=== PATIENT | male | born 1955 | race Caucasian/White ===

== ENCOUNTER 2017-12-11 08:51 | Outpatient (CLI) | payer OTHER ==
[2017-12-11 10:12] LABS: #Basophils 0.1 thou/uL (0.0-0.2); #Eosinphils 0.2 thou/uL (0.0-0.7); #Lymphocytes 2.3 thou/uL (1.20-3.40); #Monocytes 0.7 thou/uL (0.11-0.59); #Neutrophils 5.5 thou/uL (1.40-6.50); %Eosinophils 2.8 % (0.0-10.0); %Lymphocytes 26.1 % (21.0-51.0); %Monocytes 8.1 % (0.0-10.0); %Neutrophils 62.1 % (42.0-75.0); Mean Corpuscular HGB CONC 33.7 g/dL (32.0-36.0); Mean Corpuscular Hemoglobin 29.8 pg (27.0-31.0); Mean Corpuscular Volume 88.4 fL (78.0-98.0); Mean Platelet Volume 7.6 fL (7.4-10.4); Platelet Count 239 thou/uL (130-400); RBC Distribution Width 12.3 % (11.5-14.5); Red Blood Cell (RBC) Count 5.36 mill/uL (4.70-6.10); White Blood Cell (WBC) Count 8.8 thou/uL (4.8-10.8)
== END 2017-12-11 08:52 | disposition home or self-care (01) ==
LOC: LABBT 08:51
PROVIDERS: ATTEND Orthopaedic Surgery Hand Surgery
DX: Z01.812 Encounter for preprocedural laboratory examination (principal); S61.319A Laceration without foreign body of unspecified finger with damage to nail, initial encounter; S67.02XA Crushing injury of left thumb, initial encounter; S69.92XA Unspecified injury of left wrist, hand and finger(s), initial encounter
CPT/HCPCS: 85025

== ENCOUNTER 2017-12-15 12:29 | Day surgery (SDC) | payer OTHER ==
[2017-12-11 09:15] VITALS: BMI 30.1
[2017-12-15] MEDS ORDERED: Dexamethasone 20 MG/5 ML VIAL ONE (13:03)
[2017-12-15] MEDS ORDERED: PROPOFOL 200 MG/20 ML VIAL ONE (13:03)
[2017-12-15] MEDS ORDERED: Ondansetron HCl/PF 4 MG/2 ML Vial ONE (13:03)
[2017-12-15] MEDS ORDERED: ePHEDrine/0.9% NaCl/PF SYRINGE 50 mg/10 ml ONE (13:03)
[2017-12-15] MEDS ORDERED: Lidocaine 1% PF 5 ML VIAL ONE (13:03)
[2017-12-15] MEDS ORDERED: Levofloxacin 500 mg/D5W 100 ml Premix Bag ONE (13:28)
[2017-12-15] MEDS ORDERED: Clindamycin/D5W 600 mg/50 ml Premix Bag ONE (13:28)
[2017-12-15] MEDS ORDERED: Midazolam HCl 2 mg/2 ml Vial ONE (16:50)
[2017-12-15] MEDS ORDERED: Fentanyl 100 MCG/2 ML VIAL ONE (16:50)
[2017-12-15] MEDS ORDERED: Bupivacaine PF 0.5% 30 ML VIAL ONE (16:52)
[2017-12-15] MEDS ORDERED: Bacitracin Zinc Ointment 30 gm TUBE ONE (16:52)
[2017-12-15] MEDS ORDERED: Sodium Chloride 0.9% 10 ML ONE (16:52)
[2017-12-15] MEDS ORDERED: Ketorolac Tromethamine 30 MG/ML VIAL ONE ×2 (18:52)
--- NOTE | 2017-12-15 19:13 | RAD ---
SEVEN FLUOROSCOPIC SPOT IMAGES FROM ORIF OF LEFT THUMB 12/15/17 INDICATION: ORIF left thumb. Fluoroscopic time: 65.9 seconds. Total exposure: 1.57 mGy. FINDINGS: Some of these images demonstrate a comminuted fracture involving the thumb distal phalanx. Subsequent images demonstrate reduction and percutaneous pinning of the comminuted fracture. Fracture line was near anatomic. The pins project in the expected position. IMPRESSION: ORIF left thumb. POS: BH
--- NOTE | 2017-12-16 09:07 | OP ---
DATE OF SURGERY: 12/15/2017 PREOPERATIVE DIAGNOSES: 1. Left open fracture, thumb distal phalanx. 2. Nail bed laceration, distal phalanx. 3. Wound, distal phalanx. FINDINGS: 1. A 2 mm , complete transverse laceration over the thumb nail bed with hematoma. 2. Displaced fracture by even more than a 3 mm at the transverse, 15% of the distal phalanx, and the n there was a longitudinal split followed by another transverse fracture making it a segmental comple x fracture. PROCEDURES PERFORMED: 1. Debridement of open wound. 2. Open fracture debridement. 3. ORIF, distal phalanx fracture complex, because of the 3-plane nature described above and a segmen alla nature. 4. C-arm supervision. 5. Nail bed repair. All of this at the left thumb distal phalanx. SPECIMENS: None. TOURNIQUET TIME: 29 minutes. ESTIMATED BLOOD LOSS: 5 mL less. C-ARM USED: Yes. The finding is a 2 mm nail bed laceration and then 3 mm fragment separation along with a co mplex tri-plane configuration. DESCRIPTION OF PROCEDURE: After successful general endotracheal anesthesia, limb was prepped and lino ped. Timeout was then performed. We gave the patient 10 mL of 0.5% Marcaine metacarpophalangeal almas nt level block at the thumb, left. We then inflated the tourniquet to 150 mmHg pressure. At that ti me, I then appropriately exsanguinated the limb. First, we removed his sutures. Then, we gently elevated the hematoma and found he did indeed have a stellate nail bed laceration, but then we reduced the fracture, the nail bed edge was coapted. For t hat reason, we debrided the fracture using the following techniques. A. Excisional debridement. B. Curette, Crowley blade, Adson's, and irrigation was used as instrumentation. C. The depth was down to and including the bone, but not the palmar surface and it was on both sides of the fracture findings. D. There was no gross infection seen here in the bone, wound, or in the nail bed. Once the debridement was done, we irrigated with a liter of normal saline and bulb syringe pressure w ith antibiotics inside. We then took the bone, reduced it, maintaining the nail with as much as poss ible, but allowing for 1.5 to 2 mm shortness of the bone edge to touch. Once we achieved this grossl y, we held the reduction with a finger-assist reduction device. With double prong skin hook, drilled 2K wires through this to reestablish continuity between the radial and ulnar fragments. Then, we ma de a radial-ulnar fragment to touch the base fracture, after we reduced and held it with a K-wire. Now, we had 3 K-wires and they were all flushed in the fracture fragment with touching. The segmenta l fragment was touching, and the primary base fracture touch bone where he has a segmental fracture w ithout space or gap formation. We then sutured the skin around the nail bed, which has already been debrided as described above with 5-0 nylon interrupted simple pattern. We used a 5-0 chromic interrupted simple pattern repair of th e nail bed. There is no gap formation seen. The patient then had the tourniquet deflated. The C-ar m confirmed excellent position of the fracture fragments including distal fragment and then we cut th e K-wires, flushed with the skin in all 3 sites, placed bacitracin, Adaptic on the wound after hemost asis was obtained, 4 x 4s in a circumferential pattern.
== END 2017-12-15 21:23 | disposition home or self-care (01) ==
LOC: SDC 12:29
PROVIDERS: ATTEND Orthopaedic Surgery Hand Surgery
PROC: 0PSS04Z Reposition Left Thumb Phalanx with Internal Fixation Device, Open Approach (ICD-10-PCS; principal; 2017-12-15)
PROC: 0HQQXZZ Repair Finger Nail, External Approach (ICD-10-PCS; principal; 2017-12-15)
DX: S67.02XA Crushing injury of left thumb, initial encounter (principal); S62.522B Displaced fracture of distal phalanx of left thumb, initial encounter for open fracture; Z79.1 Long term (current) use of non-steroidal anti-inflammatories (NSAID); W31.9XXA Contact with unspecified machinery, initial encounter; Y99.0 Civilian activity done for income or pay
CPT/HCPCS: 76001; 96372; 96374; A4216; J1100; J1885; J1956; J2001; J2250; J2405; J2704; J3010; J3490; S0020

== ENCOUNTER 2024-04-01 22:05 | Emergency (ER) | payer MEDICARE ==
[~2024-04-01 22:05] MED LIST: Iopamidol 370 76% 100 ML VIAL ONE
[2024-04-01 22:33] LABS: #Basophils 0.08 10x3/uL (0.0-0.2); %Basophils 0.5 % (0.0-1.0); %Eosinophils 1.2 % (0.0-10.0); %Lymphocytes 13.6 % (21.0-51.0); %Monocytes 8.9 % (0.0-10.0); %Neutrophils 75.5 % (42.0-75.0); Hematocrit 47.3 % (42.0-52.0); Mean Corpuscular HGB CONC 33.8 g/dL (32.0-36.0); Mean Corpuscular Hemoglobin 30.2 pg (27.0-31.0); Mean Corpuscular Volume 89.2 fL (78.0-98.0); Platelet Count 202 10x3/uL (130-400); RBC Distribution Width 12.9 % (11.5-14.5)
[2024-04-01 22:51] LABS: ALT (SGPT) 24 U/L (8-55); AST (SGOT) 21 U/L (5-34); Albumin 3.8 g/dL (3.4-4.8); Alkaline Phosphatase 129 U/L (40-110); Anion Gap 14 mmol/L (10-20); BUN (Urea Nitrogen) 11 mg/dL (8.4-25.7); Bilirubin, Total 0.8 mg/dL (0.2-1.2); Calc. Creatinine Clearance 0 mL/min (70-130); Calcium 9.1 mg/dL (7.8-10.44); Carbon Dioxide 21 mmol/L (23-31); Chloride 107 mmol/L (98-107); Estimated GFR 67; Globulin 3.5 g/dL (2.4-3.5); Glucose 103 mg/dL (80-115); Lipase 9 U/L (8-78); Potassium 4.4 mmol/L (3.5-5.1); Protein, Total 7.3 g/dL (5.8-8.1); Sodium 138 mmol/L (136-145)
[2024-04-01] MEDS ORDERED: Ondansetron PF 4 MG/2 ML Vial ONE (22:55)
[2024-04-01] MEDS ORDERED: Morphine 4 MG/ML VIAL ONE (22:55)
[2024-04-01 23:18] LABS: Troponin I Less than 0.010 ng/mL (< 0.028)
[2024-04-01 23:29] LABS: Bacteria/HPF None Seen HPF (None Seen); Bilirubin Negative (Negative); Blood, Urine Negative (Negative); CAUTI Indications for Culture Dysuria,urgency,freq; Clarity Clear (Clear); Glucose, Urine (Dipstick) Normal (Negative); Ketone, Urine Negative (Negative); Leukocyte Negative Leu/uL (Negative); Nitrite Negative (Negative); Protein, Urine (Dipstick) Negative (Neg-Trace); RBC/HPF None Seen HPF (0-3); Specific Gravity, Urine 1.016 (1.002-1.036); Squamous Epithelial None Seen HPF (0-3); Urobilinogen 3 mg/dL (Less than 2); WBC/HPF 0-3 HPF (0-3); pH, Urine 7.5 (5.0-9.0)
[2024-04-01] MEDS ORDERED: Piperacillin/Tazobactam 4.5 GM VIAL ONE (23:35)
[2024-04-01 23:36] LABS: Urine Culture Reflex No No
[2024-04-02] MEDS ORDERED: Ondansetron PF 4 MG/2 ML Vial ONE (00:42)
[2024-04-02] MEDS ORDERED: Morphine 4 MG/ML VIAL ONE (00:42)
== END 2024-04-02 00:57 | disposition home or self-care (01) ==
LOC: ERS 22:05
DX: K57.92 Diverticulitis of intestine, part unspecified, without perforation or abscess without bleeding (principal); I10 Essential (primary) hypertension
CPT/HCPCS: 71045; 74177; 80053; 81001; 83690; 84484; 85025; 93005; J2272 ×2; J2405 ×2; J2543; 36415; 96365; 96375; 96376; Q9967